=== PATIENT | female | born 1975 | race Caucasian/White ===

== ENCOUNTER 2025-03-21 08:44 | Emergency (ER) | payer OTHER ==
[2025-03-21] MEDS ORDERED: Acetaminophen 500 MG TAB ONE (09:25)
[2025-03-21] MEDS ORDERED: Methocarbamol 500 MG TAB ONE (09:25)
[2025-03-21 09:48] LABS: #Basophils 0.03 10x3/uL (0.0-0.2); #Eosinophils 0.11 10x3/uL (0.0-0.5); #Monocytes 0.62 10x3/uL (0.0-1.1); #Neutrophils 6.87 10x3/uL (1.5-8.4); %Basophils 0.3 % (0.0-2.0); %Eosinophils 1.2 % (0.0-6.0); %Lymphocytes 18.3 % (18.0-47.0); %Monocytes 6.6 % (0.0-10.0); %Neutrophils 73.3 % (40.0-75.0); Hematocrit 44.3 % (34.9-44.5); Hemoglobin 15.2 g/dL (12.0-15.5); Mean Corpuscular Hemoglobin 28.7 pg (27.0-33.0); Mean Corpuscular Volume 83.6 fL (81.6-98.3); Platelet Count 225 10x3/uL (150-450); Red Blood Cell (RBC) Count 5.30 10x6/uL (3.90-5.03); White Blood Cell (WBC) Count 9.38 10x3/uL (3.5-10.5)
[2025-03-21 10:03] LABS: ALT (SGPT) 22 U/L (Less than 34); AST (SGOT) 32 U/L (11-34); Albumin 4.6 g/dL (3.1-4.5); Alkaline Phosphatase 61 U/L (40-110); Anion Gap 13 mmol/L (10-20); BUN (Urea Nitrogen) 14 mg/dL (9.8-20.1); Bilirubin, Total 0.5 mg/dL (0.3-1.2); Calc. Creatinine Clearance 0 mL/min (70-130); Calcium 10.8 mg/dL (7.8-10.44); Carbon Dioxide 22 mmol/L (22-29); Chloride 109 mmol/L (98-107); Globulin 3.0 g/dL (2.4-3.5); Glucose 104 mg/dL (70-105); Lipase 66 U/L (8-78); Potassium 4.1 mmol/L (3.5-5.1); Sodium 140 mmol/L (136-145)
[2025-03-21] MEDS ORDERED: Iopamidol 300 61% 100 ML VIAL FS ONE (14:12)
== END 2025-03-21 11:57 | disposition home or self-care (01) ==
LOC: CSHERS 08:44
DX: S30.11XA Contusion of abdominal wall, initial encounter (principal); M17.0 Bilateral primary osteoarthritis of knee; M54.2 Cervicalgia; M54.50 Low back pain, unspecified; V43.52XA Car driver injured in collision with other type car in traffic accident, initial encounter; Y92.410 Unspecified street and highway as the place of occurrence of the external cause
CPT/HCPCS: 70450; 71045; 72125; 74177; 80053; 83690; 85025; Q9967